=== PATIENT | female | born 1985 | race Caucasian/White ===

== ENCOUNTER 2023-01-16 03:07 | Emergency (ER) | payer MEDICAID, OTHER ==
[2023-01-16 03:39] LABS: #Eosinphils 0.2 10x3/uL (0.0-0.5); #Monocytes 0.9 10x3/uL (0.0-1.1); %Basophils 0.3 % (0.0-2.0); %Eosinophils 2.5 % (0.0-6.0); %Lymphocytes 25.5 % (18.0-47.0); %Neutrophils 62.2 % (40.0-75.0); Hemoglobin 14.2 g/dL (12.0-15.5); Mean Corpuscular Hemoglobin 36.2 pg (27.0-33.0); Mean Corpuscular Volume 103.6 fl (81.6-98.3); Platelet Count 308 10x3/uL (150-450); RBC Distribution Width 12.7 % (11.5-14.5); Red Blood Cell (RBC) Count 3.92 10x6/uL (3.90-5.03); White Blood Cell (WBC) Count 9.6 10x3/uL (3.5-10.5)
== END 2023-01-16 05:26 | disposition home or self-care (01) ==
LOC: CSHERS 03:07
DX: O20.0 Threatened abortion (principal); O99.331 Smoking (tobacco) complicating pregnancy, first trimester; F17.210 Nicotine dependence, cigarettes, uncomplicated; Z3A.01 Less than 8 weeks gestation of pregnancy
CPT/HCPCS: 76856; 84702; 85025; 86900; 86901; 90384; 96372

== ENCOUNTER 2023-04-19 20:34 | Day surgery (SDC) | payer OTHER ==
[2023-04-19 21:22] VITALS: BMI 35.7
== END 2023-04-19 21:20 | disposition home or self-care (01) ==
LOC: CSHLD/OP 20:34
PROVIDERS: ATTEND Obstetrics & Gynecology
DX: Z04.3 Encounter for examination and observation following other accident (principal); O34.211 Maternal care for low transverse scar from previous cesarean delivery; W18.41XA Slipping, tripping and stumbling without falling due to stepping on object, initial encounter; Z88.0 Allergy status to penicillin; Z3A.21 21 weeks gestation of pregnancy

== ENCOUNTER 2023-08-06 10:03 | Inpatient (IN) | payer MEDICAID, OTHER ==
[2023-08-05 09:51] LABS: Hemoglobin 12.6 g/dL (12.0-15.5); Mean Corpuscular Hemoglobin 34.7 pg (27.0-33.0); Mean Corpuscular Volume 96.4 fl (81.6-98.3); Mean Platelet Volume 11.2 fl (7.4-10.4); Platelet Count 251 10x3/uL (150-450); RBC Distribution Width 13.4 % (11.5-14.5); Red Blood Cell (RBC) Count 3.63 10x6/uL (3.90-5.03); White Blood Cell (WBC) Count 12.8 10x3/uL (3.5-10.5)
[2023-08-05 10:24] LABS: HBSAg Index 0.24 S/CO (0-0.99); Hep B Surf Ag Non-Reactive S/CO (NonReactive)
[2023-08-05 10:26] LABS: Syphilis Antibody Nonreactive (Nonreactive); Syphilis Antibody Index 0.13 S/CO (<1.00 Non-Reactive)
[2023-08-06] MEDS ORDERED: Famotidine/PF 20 mg/2ml Vial SLOW IVP PRN (10:27)
[2023-08-06] MEDS ORDERED: hydrALAZINE 20 MG/ML VIAL SLOW IVP PRN ×2 (10:27→20:40)
[2023-08-06] MEDS ORDERED: Promethazine HCl 25 MG/ML VIAL IM PRN (10:27)
[2023-08-06] MEDS ORDERED: Carboprost 250 MCG/ML AMP IM PRN (10:27)
[2023-08-06] MEDS ORDERED: Bicitra 30 ML UDCUP PO PRN (10:27)
[2023-08-06] MEDS ORDERED: Tranexamic Acid 1,000 MG/10 ML VIAL IVP PRN (10:27)
[2023-08-06] MEDS ORDERED: Ondansetron PF 4 MG/2 ML Vial IVP PRN ×3 (10:27→14:20)
[2023-08-06] MEDS ORDERED: Misoprostol 200 MCG TAB PR PRN (10:27)
[2023-08-06] MEDS ORDERED: Docusate 100 MG CAP PO PRN (10:27)
[2023-08-06] MEDS ORDERED: Diphenoxylate HCl/Atropine Tablet PO PRN (10:27)
[2023-08-06] MEDS ORDERED: Oxytocin 30 units/NS 500 ML 500 ML IV SCH ×2 (10:30→20:40)
[2023-08-06] MEDS ORDERED: CEFAZOLIN 2 GM in Sodium Chloride 0.9% 100 ML IVPB SCH (10:30)
[2023-08-06 11:11] VITALS: BMI 35.7
[2023-08-06] MEDS ORDERED: Dextrose 5%-Lactated Ringers 1,000 ML IV SCH (11:30)
[2023-08-06] MEDS ORDERED: Moisturizing Cream (Eucerin) 113 GM JAR TOP PRN (14:20)
[2023-08-06] MEDS ORDERED: Promethazine HCl 25 MG SUPP PR PRN (14:20)
[2023-08-06] MEDS ORDERED: Naloxone HCl 0.4 mg/ml Vial IV PRN (14:20)
[2023-08-06] MEDS ORDERED: diphenhydrAMINE 50 MG/ML VIAL IVP PRN (14:20)
[2023-08-06] MEDS ORDERED: Meperidine HCl/PF 25 MG (1 mL) VIAL SLOW IVP PRN (14:20)
[2023-08-06] MEDS ORDERED: Naloxone HCl 0.4 mg/ml Vial IVP PRN ×2 (14:20)
[2023-08-06] MEDS ORDERED: fentaNYL 50 mcg/mL 1 mL Vial SLOW IVP PRN (14:20)
[2023-08-06] MEDS ORDERED: Communication Order-Pharmacy FS SCH (14:30)
[2023-08-06] MEDS ORDERED: Ketorolac Tromethamine 30 MG (1 mL) VIAL IVP SCH (14:30)
[2023-08-06] MEDS: Promethazine HCl 25 MG/ML VIAL IM PRN (15:36)
[2023-08-06] MEDS ORDERED: Acetaminophen 325 MG TAB PO PRN (20:40)
[2023-08-06] MEDS ORDERED: Lanolin Ointment 7 GM TUBE TOP PRN (20:40)
[2023-08-06] MEDS ORDERED: Methylergonovine 0.2 MG/ML VIAL IM PRN (20:40)
[2023-08-06] MEDS ORDERED: diphenhydrAMINE 25 MG CAP PO PRN (20:40)
[2023-08-06] MEDS: Docusate 100 MG CAP PO SCH (21:22)
[2023-08-06] MEDS: Ketorolac Tromethamine 30 MG (1 mL) VIAL IVP PRN (21:23)
[2023-08-07] MEDS ORDERED: HYDROcodone/Acetaminophen 5/325 mg Tablet PO PRN (02:30)
[2023-08-07 04:26] LABS: Hematocrit 30.8 % (34.9-44.5); Hemoglobin 10.9 g/dL (12.0-15.5); Mean Corpuscular HGB CONC 35.4 g/dL (32.0-36.0); Mean Corpuscular Hemoglobin 34.7 pg (27.0-33.0); Mean Corpuscular Volume 98.1 fl (81.6-98.3); Mean Platelet Volume 11.7 fl (7.4-10.4); Platelet Count 227 10x3/uL (150-450); RBC Distribution Width 13.3 % (11.5-14.5); Red Blood Cell (RBC) Count 3.14 10x6/uL (3.90-5.03); White Blood Cell (WBC) Count 14.2 10x3/uL (3.5-10.5)
[2023-08-07] MEDS: Dexmedetomidine 200 MCG/2 ML VIAL ONE (07:56)
[2023-08-07] MEDS: Clindamycin/D5W 900 MG in Premix 1 BAG IVPB SCH (07:56)
[2023-08-07] MEDS: Azithromycin 500 MG in Sodium Chloride 0.9% 250 ML 250 ML IVPB SCH (07:56)
[2023-08-07] MEDS: Morphine PF 10 MG/10 ML VIAL ONE (07:56)
[2023-08-07] MEDS: Oxytocin 10 UNITS/ML VIAL ONE ×3 (07:57→07:58)
[2023-08-07] MEDS: Dexamethasone 4 mg/ml Vial ONE (07:57)
[2023-08-07] MEDS: PHENYLEPHRINE-NS 100 MCG/ML 10 ML SYRINGE ONE ×4 (07:57→07:58)
[2023-08-07] MEDS: PROPOFOL 0 ML ONE (07:57)
[2023-08-07] MEDS: Boostrix 0.5 ML (Tdap) VIAL (>/=7 yrs of age) IM ONE (07:58)
[2023-08-07] MEDS: Prenatal Vitamin 1 TAB PO SCH (08:12)
[2023-08-07] MEDS: Ibuprofen 800 MG TAB PO SCH (13:23)
[2023-08-07] MEDS: HYDROcodone/Acetaminophen 5/325 mg Tablet PO PRN (17:49)
[2023-08-08 04:57] LABS: #Eosinphils 0.3 10x3/uL (0.0-0.5); #Neutrophils 8.1 10x3/uL (1.5-8.4); %Basophils 0.3 % (0.0-2.0); %Eosinophils 2.3 % (0.0-6.0); %Lymphocytes 20.6 % (18.0-47.0); Hematocrit 31.4 % (34.9-44.5); Hemoglobin 10.6 g/dL (12.0-15.5); Mean Corpuscular HGB CONC 33.8 g/dL (32.0-36.0); Mean Corpuscular Hemoglobin 33.3 pg (27.0-33.0); Mean Corpuscular Volume 98.7 fl (81.6-98.3); Mean Platelet Volume 11.4 fl (7.4-10.4); Platelet Count 240 10x3/uL (150-450); RBC Distribution Width 13.4 % (11.5-14.5); Red Blood Cell (RBC) Count 3.18 10x6/uL (3.90-5.03); White Blood Cell (WBC) Count 11.9 10x3/uL (3.5-10.5)
[2023-08-08 07:53] VITALS: BP 138/80; TEMP 98.7
[2023-08-08] MEDS: Acetaminophen 325 MG TAB PO SCH (09:09)
== END 2023-08-08 11:50 | disposition home or self-care (01) | DRG 788 ==
LOC: CSHLD 10:03 → EEVIPCON 10:03 → CSHPP 20:10
PROVIDERS: ADMIT Obstetrics & Gynecology; ATTEND Obstetrics & Gynecology
PROC: 10D00Z1 Extraction of Products of Conception, Low, Open Approach (ICD-10-PCS; principal; 2023-08-06)
DX: O34.211 Maternal care for low transverse scar from previous cesarean delivery (principal); O13.4 Gestational [pregnancy-induced] hypertension without significant proteinuria, complicating childbirth; Z3A.37 37 weeks gestation of pregnancy; Z37.0 Single live birth; O99.334 Smoking (tobacco) complicating childbirth; O99.214 Obesity complicating childbirth; E66.9 Obesity, unspecified; F17.210 Nicotine dependence, cigarettes, uncomplicated; O24.429 Gestational diabetes mellitus in childbirth, unspecified control; O26.893 Other specified pregnancy related conditions, third trimester; Z67.21 Type B blood, Rh negative
CPT/HCPCS: 36415; 36416; 51702; 85025; 85027; 85461; 86780; 86850; 86900; 86901; 87340; 88302; 90384; 96372; J1100; J1885; J2274; J2550; J2590; J2704

== ENCOUNTER 2023-08-13 10:18 | Inpatient (IN) | payer MEDICAID ==
[2023-08-13] MEDS ORDERED: Labetalol HCl 100 MG/20 ML VIAL ONE (10:57)
[2023-08-13] MEDS ORDERED: Magnesium 2 GM/50 ML BAG (IN WATER) ONE (10:58)
[2023-08-13] MEDS ORDERED: Magnesium Sulfate 20 gm/500 ml 20 GM/500 ML BAG IVPB SCH (11:00)
[2023-08-13 11:01] LABS: #Basophils 0.1 10x3/uL (0.0-0.2); #Eosinphils 0.5 10x3/uL (0.0-0.5); #Monocytes 0.7 10x3/uL (0.0-1.1); #Neutrophils 6.6 10x3/uL (1.5-8.4); %Basophils 0.5 % (0.0-2.0); %Eosinophils 4.6 % (0.0-6.0); %Lymphocytes 22.4 % (18.0-47.0); %Monocytes 6.6 % (0.0-10.0); %Neutrophils 65.2 % (40.0-75.0); Hematocrit 36.5 % (34.9-44.5); Hemoglobin 12.4 g/dL (12.0-15.5); Mean Corpuscular Hemoglobin 33.2 pg (27.0-33.0); Mean Corpuscular Volume 97.6 fl (81.6-98.3); Mean Platelet Volume 9.8 fl (7.4-10.4); Platelet Count 366 10x3/uL (150-450); RBC Distribution Width 13.1 % (11.5-14.5); Red Blood Cell (RBC) Count 3.74 10x6/uL (3.90-5.03); White Blood Cell (WBC) Count 10.1 10x3/uL (3.5-10.5)
[2023-08-13 11:22] LABS: ALT (SGPT) 20 U/L (8-55); AST (SGOT) 20 U/L (5-34); Albumin 3.6 g/dL (3.5-5.0); Alkaline Phosphatase 107 U/L (40-110); Anion Gap 14 mmol/L (10-20); BUN (Urea Nitrogen) 10 mg/dL (7.0-18.7); Bilirubin, Total 0.4 mg/dL (0.2-1.2); Calc. Creatinine Clearance 0 mL/min (70-130); Calcium 8.3 mg/dL (7.8-10.44); Carbon Dioxide 21 mmol/L (22-29); Chloride 104 mmol/L (98-107); Estimated GFR 118; Globulin 2.8 g/dL (2.4-3.5); Glucose 145 mg/dL (70-105); Potassium 3.9 mmol/L (3.5-5.1); Protein, Total 6.4 g/dL (6.0-8.3); Sodium 135 mmol/L (136-145)
[2023-08-13] MEDS ORDERED: Magnesium Sulfate 1 GM, IV Admixture Fee-Chemo 1 UNITS in Sodium Chloride 0.9% 100 ML IV SCH (12:15)
[2023-08-13 12:36] LABS: Bilirubin Neg (Negative); Blood, Urine 250 (Negative); Clarity Slightly Cloudy (Clear); Glucose, Urine (Dipstick) Normal (Negative); Ketone, Urine Negative (Negative); Leukocyte 100 (Negative); Nitrite Negative (Negative); Protein, Urine (Dipstick) Negative (Neg-Trace); Urobilinogen Normal mg/dL (Less than 2)
[2023-08-13 12:51] LABS: CAUTI Indications for Culture Pregnancy; Transitional Epithelial 0-3 HPF (None Seen)
[2023-08-13 12:52] LABS: Bacteria/HPF 2+ HPF (None Seen); Mucous/LPF 1+ LPF (<2+)
[2023-08-13 12:53] LABS: Urine Culture Reflex Yes Yes
[2023-08-13 13:59] VITALS: BMI 33.2
[2023-08-13 14:32] LABS: Creatinine, Urine 22.96 mg/dL (47-110); Protein, Urine Random Quant Less than 10 mg/dL (1-14)
[2023-08-13] MEDS ORDERED: Lorazepam 2 MG/ML VIAL SLOW IVP PRN (16:15)
[2023-08-13] MEDS ORDERED: Calcium Gluc 4.6 MEQ/10 ML (100 MG/ML) SLOW IVP PRN (16:15)
[2023-08-13] MEDS ORDERED: hydrALAZINE 20 MG/ML VIAL SLOW IVP PRN (16:15)
[2023-08-13] MEDS ORDERED: Labetalol HCl 100 MG/20 ML VIAL SLOW IVP PRN ×2 (16:15)
[2023-08-13] MEDS: Magnesium Sulfate/D5W 1 GM in Premix 1 BAG IVPB SCH (19:06)
[2023-08-13] MEDS: Labetalol HCl 100 MG TAB PO SCH (20:54)
[2023-08-14] MEDS: Magnesium Sulfate 20 gm/500 ml 20 GM/500 ML BAG IVPB SCH (00:15)
[2023-08-14] MEDS: Acetaminophen 500 MG TAB PO PRN (00:15)
[2023-08-14 03:55] LABS: ALT (SGPT) 15 U/L (8-55); AST (SGOT) 19 U/L (5-34); Albumin 3.1 g/dL (3.5-5.0); Alkaline Phosphatase 91 U/L (40-110); Anion Gap 11 mmol/L (10-20); BUN (Urea Nitrogen) 7 mg/dL (7.0-18.7); Bilirubin, Total 0.3 mg/dL (0.2-1.2); Calc. Creatinine Clearance 223 mL/min (70-130); Calcium 7.5 mg/dL (7.8-10.44); Carbon Dioxide 21 mmol/L (22-29); Chloride 109 mmol/L (98-107); Estimated GFR 122; Globulin 2.5 g/dL (2.4-3.5); Glucose 94 mg/dL (70-105); Protein, Total 5.6 g/dL (6.0-8.3); Sodium 137 mmol/L (136-145)
[2023-08-14] MEDS: Labetalol HCl 200 MG TAB PO SCH (21:01)
[2023-08-15] MEDS: Labetalol HCl 100 MG/20 ML VIAL SLOW IVP PRN (08:12)
[2023-08-15] MEDS: Labetalol HCl 200 MG TAB PO SCH (13:19)
[2023-08-15] MEDS ORDERED: hydrALAZINE 20 MG/ML VIAL SLOW IVP PRN (21:12)
[2023-08-15] MEDS ORDERED: Labetalol HCl 100 MG/20 ML VIAL SLOW IVP PRN ×2 (21:12)
[2023-08-15] MEDS: hydrALAZINE 20 MG/ML VIAL SLOW IVP PRN (21:50)
[2023-08-16] MEDS: Labetalol HCl 200 MG TAB PO SCH ×2 (07:48→13:40)
[2023-08-16] MEDS: NIFEdipine XL 30 MG ER.TAB PO SCH (10:48)
[2023-08-17] MEDS: NIFEdipine XL 30 MG ER.TAB PO SCH (09:15)
[2023-08-17 12:41] VITALS: BP 130/79; TEMP 98.9
== END 2023-08-17 14:00 | disposition home or self-care (01) | DRG 776 ==
LOC: CSHERS 10:18 → CSHLD 13:47 → CSHPP 08-14 14:51
PROVIDERS: ADMIT Family Medicine; ATTEND Family Medicine
DX: O14.15 Severe pre-eclampsia, complicating the puerperium (principal); O13.5 Gestational [pregnancy-induced] hypertension without significant proteinuria, complicating the puerperium; Z88.0 Allergy status to penicillin; Z79.82 Long term (current) use of aspirin; Z79.84 Long term (current) use of oral hypoglycemic drugs; Z79.899 Other long term (current) drug therapy
CPT/HCPCS: 36415; 80053; 81001; 82570; 84156; 85025; 87086; 93005; J0360; J3475